=== PATIENT | female | born 2000 | race Caucasian/White ===

== ENCOUNTER 2024-06-24 06:58 | Inpatient (IN) | payer MEDICAID ==
[2024-06-24] MEDS ORDERED: Ondansetron 4 MG/2 ML SDV IVPUSH PRN (07:07)
[2024-06-24] MEDS ORDERED: Lidocaine 1% 50 ML MDV INJECT PRN (07:07)
[2024-06-24] MEDS ORDERED: Calcium Carbonate 500 MG Tab.Chew PO PRN (07:07)
[2024-06-24] MEDS ORDERED: Sodium Chloride 0.9% 10 ML Syringe FLUSH PRN (07:07)
[2024-06-24] MEDS ORDERED: Nalbuphine 10 MG/1 ML Vial IVPUSH PRN (07:07)
[2024-06-24 07:53] LABS: BASOPHILS PERCENT AUTO 0.2 % (0.0-1.0); EOSINOPHILS ABSOLUTE AUTO 0.1 K/mm3 (0.0-0.4); EOSINOPHILS PERCENT AUTO 0.7 % (0.0-6.0); HEMATOCRIT 35.3 % (37.0-47.0); HEMOGLOBIN 12.2 gm/dl (12.0-16.0); IMMATURE GRAN ABSOLUTE AUTO 0.11 K/mm3 (0.00-0.05); IMMATURE GRAN PERCENT AUTO 0.9 % (0.0-0.4); LYMPHOCYTES ABSOLUTE AUTO 2.5 K/mm3 (1.0-4.8); LYMPHOCYTES PERCENT AUTO 19.3 % (24.0-44.0); MEAN CORPUSCULAR HEMOGLOBIN 31.8 pg (28.0-32.0); MEAN CORPUSCULAR HGB CONC 34.6 g/dl (32.0-36.0); MEAN CORPUSCULAR VOLUME 91.9 fl (83.0-99.0); MEAN PLATELET VOLUME 10.6 fl (9.4-12.3); MONOCYTES ABSOLUTE AUTO 1.1 K/mm3 (0.0-0.8); MONOCYTES PERCENT AUTO 8.7 % (0.0-8.0); NEUTROPHILS PERCENT AUTO 70.2 % (41.0-71.0); PLATELET COUNT,PLT 245 K/mm3 (150-400); RED BLOOD CELL COUNT 3.84 M/mm3 (4.10-5.30); WHITE BLOOD CELL COUNT,WBC 12.77 K/mm3 (3.9-11.3)
[2024-06-24] MEDS: Lactated Ringers 1,000 ML IV SCH (07:53)
[2024-06-24] MEDS: Penicillin G Potassium 5 MILLUNITS in Sodium Chloride 0.9% 100 ML IV SCH (07:54)
[2024-06-24] MEDS: Oxytocin/0.9 % Sodium Chloride 30 UNIT/500 ML BAG IV SCH ×2 (08:15→20:48)
[2024-06-24] MEDS: Penicillin G Potassium 2.5 MILLUNITS in Sodium Chloride 0.9% 100 ML IV SCH (11:57)
[2024-06-24] MEDS ORDERED: ePHEDrine 50 MG/ML SDV IVPUSH PRN (14:09)
[2024-06-24] MEDS ORDERED: diphenhydrAMINE 50 MG/ML SDV IVPUSH PRN (14:09)
[2024-06-24] MEDS: Bupivacaine/fentaNYL/NS 100 ML Bag EPIDUR PRN (14:21)
[2024-06-24] MEDS ORDERED: Docusate Sodium 100 MG Cap PO PRN (21:08)
[2024-06-24] MEDS ORDERED: Acetaminophen 325 MG Tab PO PRN (21:08)
[2024-06-24] MEDS: Ibuprofen 800 MG Tab PO SCH (23:13)
[2024-06-24] MEDS: Witch Hazel Medicated Pads 40/Jar TOP PRN (23:14)
[2024-06-24] MEDS: Benzocaine/Menthol 20%-0.5% Spray 78 GM Cannister TOP PRN (23:14)
[2024-06-24] MEDS: Sodium Chloride 0.9% 10 ML Syringe FLUSH SCH (23:32)
[2024-06-24] MEDS: Misoprostol 25 MCG (1/4 of 100 MCG) Tab VAG SCH (23:55)
[2024-06-25] MEDS: Ibuprofen 800 MG Tab PO SCH (04:32)
== END 2024-06-26 18:45 | disposition home or self-care (01) | DRG 807 ==
LOC: JD.OB 06:58 → OBSVTOIN 20:17 → JD.OB 20:18
PROVIDERS: ADMIT Obstetrics & Gynecology; ATTEND Obstetrics & Gynecology
PROC: 10E0XZZ Delivery of Products of Conception, External Approach (ICD-10-PCS; principal; 2024-06-24)
PROC: 10907ZC Drainage of Amniotic Fluid, Therapeutic from Products of Conception, Via Natural or Artificial Opening (ICD-10-PCS; 2024-06-24)
PROC: 3E033VJ Introduction of Other Hormone into Peripheral Vein, Percutaneous Approach (ICD-10-PCS; 2024-06-24)
PROC: 0HQ9XZZ Repair Perineum Skin, External Approach (ICD-10-PCS; 2024-06-24)
PROC: 0UQGXZZ Repair Vagina, External Approach (ICD-10-PCS; 2024-06-24)
PROC: 3E0R3BZ Introduction of Anesthetic Agent into Spinal Canal, Percutaneous Approach (ICD-10-PCS; 2024-06-24)
PROC: 00HU33Z Insertion of Infusion Device into Spinal Canal, Percutaneous Approach (ICD-10-PCS; 2024-06-24)
DX: O99.824 Streptococcus B carrier state complicating childbirth (principal); Z37.0 Single live birth; O48.0 Post-term pregnancy; Z3A.40 40 weeks gestation of pregnancy; O76 Abnormality in fetal heart rate and rhythm complicating labor and delivery
CPT/HCPCS: 01967; 36415; 51702; 59025; 59409; 85025; 86592; 86850; 86900; 86901; A9270-GY; J2540; J3490; J7120; J7999